=== PATIENT | female | born 1985 | race Caucasian/White ===

== ENCOUNTER → 2017-08-04 | Outpatient (CLI) | payer OTHER ==
[~2017-08-04] MED LIST: ACET325; ACET325 PO; ALBU90I INH; ALBU90OI INH; ALBU90OI61 INH; AMOXICILLIN; AZIT250 PO; BECL40OI INH; BECLNI19AQ IH; BECLOI16.8 IH; BENADRYL25 MG PO; BENTYL10 MG PO; BUDE6HFA; BUDE6HFA INH; CEFU250 PO; CEPH500 PO; CETI5 PO; CODGUAEL PO; COMBIVENT RESPIM4 GM; DIPH50 PO; DOCU100 PO; Esgic Tablet1 EACH PO; FAMO20 PO; FERR325 PO; FLU MED; FLUT.05NI; GEMF600 PO; HYDACE5 PO; HYDR1TAB94 PO; IBUP600 PO; Ipratr-Albuterol3 ML IH; Kristalose20 GM PO; METO25ER PO; METPRE4DP PO; MONT10T; MONT10T PO; MULTI VITAMIN1 EACH PO; MULTIVITAMIN GUMMY PO; MULVITMINE PO; Microgestin1 EAC1 PO; Mucinex600 MG PO; NAPR375; NEOPOLHCSU OT; NITR100 PO; Norco 5-325 Ta1 EACH PO; ONDA8 PO; OTHER; OXYC5 PO; Omeprazole20 M1 PO; Oxycodone HCl5 M1 PO; PRED10 PO; PRED20 PO; PROM25 PO; PYRI100 PO; Prednisone20 MG PO; Pseudoephedrine30 MG PO; QVAR7.3 G1 IH; ROXICODONE5 MG PO; RXNEOPOLHC AD; RXPROM25 PO; SPACE CHAMBER1 EACH PO; SYMBICORT; SYMBICORT IH; Stool Softener100 MG PO; Zofran4 MG PO; Zofran8 MG PO
== END | disposition home or self-care (01) ==
LOC: LAB SHORT 08:01 → PLD 08:01
DX: D36.7 Benign neoplasm of other specified sites (principal)
CPT/HCPCS: 88305

== ENCOUNTER → 2017-08-18 | Outpatient (CLI) | payer OTHER ==
[2017-08-19 09:03] LABS: Candida species (DNA Probe) Positive (NEGATIVE); G. vaginalis (DNA Probe) Negative (NEGATIVE); T. vaginalis (DNA Probe) Negative (NEGATIVE)
== END ==
LOC: LAB 16:45
PROVIDERS: Nurse Practitioner Family
DX: R10.2 Pelvic and perineal pain (principal)
CPT/HCPCS: 87480; 87510; 87660

== ENCOUNTER → 2018-05-13 | Outpatient (CLI) | payer OTHER | LOC: LAB 09:05 → LAB SHORT 09:05 | DX: J45.909 Unspecified asthma, uncomplicated (principal) | CPT/HCPCS: 87070; 87205 ==

== ENCOUNTER 2018-07-18 21:34 | Emergency (ER) | payer OTHER ==
[~2018-07-18] VITALS: Ht 167.6 cm; Wt 89.4 kg
[2018-07-18] MEDS ORDERED: FAMO20 PO (21:55)
[2018-07-18] MEDS ORDERED: FLUTICASONE-SA1 EAC1 IH (21:56)
[2018-07-18] MEDS ORDERED: Singulair10 MG (21:57)
[2018-07-18] MEDS ORDERED: BENADRYL25 MG PO (21:59)
[2018-07-18] MEDS ORDERED: EPIPEN0.3 MG/0.3 IM (22:00)
[2018-07-18] MEDS ORDERED: NICOTINE1 EACH TD (22:01)
[2018-07-18] MEDS ORDERED: ACET325 PO (22:02)
[2018-07-18] MEDS ORDERED: ELDERBERRY (22:03)
[2018-07-18] MEDS ORDERED: CRANBERRY250 MG (22:03)
[2018-07-18] MEDS ORDERED: PROBIOTIC (22:03)
[2018-07-18 22:22] LABS: BASOPHILS ABSOLUTE AUTO 0.06 K/mm3 (0.00-0.23); BASOPHILS PERCENT AUTO 1 % (0-2); EOSINOPHILS ABSOLUTE AUTO 0.43 K/mm3 (0.00-0.68); EOSINOPHILS PERCENT AUTO 4 % (0-6); Hematocrit 40.8 % (33.0-51.0); Hemoglobin 14.2 g/dL (11.5-16.0); IMMATURE GRAN ABSOLUTE AUTO 0.02 K/mm3 (0.00-0.10); IMMATURE GRAN PERCENT AUTO 0 % (0-1); LYMPHOCYTES PERCENT AUTO 41 % (21-46); MONOCYTES ABSOLUTE AUTO 0.49 K/mm3 (0.16-1.47); MONOCYTES PERCENT AUTO 5 % (4-13); Mean Corpuscular HGB 29.8 pg (26.0-34.0); Mean Corpuscular HGB Conc 34.8 g/dL (31.5-36.5); Mean Corpuscular Volume 86 fL (80-100); Mean Platelet Volume 9.4 fL (9.1-12.4); NEUTROPHILS ABSOLUTE AUTO 5.02 K/mm3 (1.96-9.15); NEUTROPHILS PERCENT AUTO 49 % (41-73); Platelet Count 359 K/mm3 (150-400); RDW Coefficient Variation 12.1 % (11.7-14.2); RDW Standard Deviation 38.2 fL (35.1-46.3); Red Blood Cell Count 4.77 M/mm3 (3.80-5.20); White Blood Cell Count 10.22 K/mm3 (4.00-11.30)
[2018-07-18 22:41] LABS: Alanine Aminotransfer (ALT/SGP 17 U/L (12-78); Albumin, Blood 3.7 g/dL (3.4-5.0); Alk Phos 84 U/L (50-136); Anion Gap 12 mmol/L (6-16); Aspartate Aminotrans (AST/SGOT 6 U/L (12-37); Bilirubin, Total 0.3 mg/dL (0.1-1.0); Blood Urea Nitrogen 13 mg/dL (8-24); Bun/Creatinine Ratio 19.2 (12.0-20.0); CO2, Blood 21 mmol/L (21-32); Calcium, Blood 8.9 mg/dL (8.5-10.1); Chloride, Blood 108 mmol/L (98-108); Creatinine, Blood 0.68 mg/dL (0.40-1.00); Globulin, Blood 3.6 g/dL (2.2-4.0); Glomerular Filtration Rate >60 (60-); Glucose, Blood 117 mg/dL (70-99); Potassium, Blood 3.7 mmol/L (3.5-5.5); Sodium, Blood 141 mmol/L (136-145); Total Protein, Blood 7.3 g/dL (6.4-8.2)
[2018-07-18 23:10] LABS: Source, Urine Clean Catch
[2018-07-18 23:16] LABS: Bilirubin, Urine Neg (Neg); Blood, Urine 4+ (Neg); Glucose Qualitative, Urine Neg (Neg); Ketones, Urine Neg (Neg); Leukocyte Esterase, Urine Neg (Neg); Nitrite, Urine Neg (Neg); Protein, Urine 1+ (Neg); Urobilinogen, Urine NORM (Normal)
[2018-07-18 23:27] LABS: Appearance, Urine Clear (Clear); Color, Urine Yellow (P-Yellow)
[2018-07-18 23:37] LABS: Squamous Epithelial Cells Rare /hpf (Few)
[2018-07-18 23:38] LABS: Amorphous Light (0-Heavy); Bacteria Rare /hpf; Mucus Light (0-Heavy); White Blood Cells, Urine 0-2 /hpf (0-5)
[2018-07-19] MEDS ORDERED: Protonix40 MG PO (02:48)
== END 2018-07-19 03:57 | disposition home or self-care (01) ==
LOC: ER 21:34
PROVIDERS: Emergency Medicine
DX: R10.12 Left upper quadrant pain (principal); R11.2 Nausea with vomiting, unspecified; Z91.048 Other nonmedicinal substance allergy status; Z91.040 Latex allergy status; Z91.012 Allergy to eggs; Z91.018 Allergy to other foods; Z88.8 Allergy status to other drugs, medicaments and biological substances; Z79.899 Other long term (current) drug therapy; J45.909 Unspecified asthma, uncomplicated; Z87.891 Personal history of nicotine dependence
CPT/HCPCS: 36415; 71046; 74176; 80053; 81001; 81025; 83690; 85025; 96361; 96374; 96375; 99284-25; J1170; J2405; J2550; J3010; J7030; P9612

== ENCOUNTER → 2018-07-20 | Outpatient (CLI) | payer OTHER ==
[~2018-07-20] MED LIST changes: +CRANBERRY250 MG; +ELDERBERRY; +EPIPEN0.3 MG/0.3 IM; +FLUTICASONE-SA1 EAC1 IH; +NICOTINE1 EACH TD; +PROBIOTIC; +Protonix40 MG PO; +Singulair10 MG
[2018-07-20 12:03] LABS: Adenovirus F 40/41 Not Detected (NOT DETECT); Astrovirus Not Detected (NOT DETECT); Campylobacter Sp Not Detected (NOT DETECT); Cryptosporidium Not Detected (NOT DETECT); Cyclospora Cayetanensis Not Detected (NOT DETECT); E. Coli O157 Not Detected (NOT DETECT); Entamoeba Histolytica Not Detected (NOT DETECT); Enteroaggregative E. coli-EAEC Not Detected (NOT DETECT); Enteropathogenic E. coli-EPEC Not Detected (NOT DETECT); Enterotoxigenic E. coli-ETEC Not Detected (NOT DETECT); Giardia Lamblia Not Detected (NOT DETECT); Norovirus GI/GII Not Detected (NOT DETECT); Plesiomonas Shigelloides Not Detected (NOT DETECT); Rotavirus A Not Detected (NOT DETECT); Salmonella Sp Not Detected (NOT DETECT); Sapovirus Not Detected (NOT DETECT); Shiga Toxin-prod E. coli-STEC Not Detected (NOT DETECT); Shigella/Enteroin E. coli-EIEC Not Detected (NOT DETECT); Vibrio Cholerae Not Detected (NOT DETECT); Vibrio Sp Not Detected (NOT DETECT); Yersinia Enterocolitica Not Detected (NOT DETECT)
== END | disposition home or self-care (01) ==
LOC: LAB SHORT 09:50 → LAB 09:50
PROVIDERS: Emergency Medicine
DX: R19.7 Diarrhea, unspecified (principal)
CPT/HCPCS: 87177; 87209; 87507

== ENCOUNTER → 2018-07-29 | Outpatient (CLI) | payer OTHER | END | disposition home or self-care (01) | LOC: LAB FUT 07-22 13:45 → LAB SHORT 12:41 → LAB 12:41 | PROVIDERS: Internal Medicine Gastroenterology | DX: R19.7 Diarrhea, unspecified (principal) | CPT/HCPCS: 82710 ==

== ENCOUNTER → 2018-09-29 | Outpatient (CLI) | payer OTHER ==
[~2018-09-29] MED LIST changes: +OMEPRAZOLE20 MG PO; -Singulair10 MG; +Singulair10 MG PO
[2018-10-05 23:07] LABS: CHLAMYDIA BY NAA Negative (Negative); GONOCOCCUS BY NAA Negative (Negative); HPV 16 Negative (Negative); HPV 18 Negative (Negative); HPV OTHER HR TYPES Negative (Negative); TRICH VAG BY NAA Negative (Negative)
== END | disposition home or self-care (01) ==
LOC: LAB SHORT 11:43 → LAB 11:43
PROVIDERS: Obstetrics & Gynecology
DX: Z01.419 Encounter for gynecological examination (general) (routine) without abnormal findings (principal); Z11.3 Encounter for screening for infections with a predominantly sexual mode of transmission
CPT/HCPCS: 87491; 87591; 87624; 87661; G0123

== ENCOUNTER → 2019-05-23 | Outpatient (CLI) | payer OTHER ==
[~2019-05-23] MED LIST changes: +ELINEST1 EACH PO
[2019-05-25 10:07] LABS: CHLAMYDIA BY NAA Negative (Negative); GONOCOCCUS BY NAA Negative (Negative); TRICH VAG BY NAA Negative (Negative)
== END | disposition home or self-care (01) ==
LOC: LAB SHORT 10:44 → LAB EV 10:44
PROVIDERS: Physician Assistant Medical
DX: N89.8 Other specified noninflammatory disorders of vagina (principal)
CPT/HCPCS: 87070; 87086; 87205; 87491; 87591; 87661

== ENCOUNTER 2019-06-16 16:32 | Emergency (ER) | payer OTHER ==
[~2019-06-16] VITALS: Ht 165.1 cm; Wt 77.1 kg
[~2019-06-16 16:32] MED LIST changes: -ELINEST1 EACH PO
[2019-06-16 17:19] LABS: BASOPHILS ABSOLUTE AUTO 0.05 K/mm3 (0.00-0.23); BASOPHILS PERCENT AUTO 1 % (0-2); EOSINOPHILS ABSOLUTE AUTO 0.26 K/mm3 (0.00-0.68); EOSINOPHILS PERCENT AUTO 3 % (0-6); Hematocrit 41.4 % (33.0-51.0); Hemoglobin 13.9 g/dL (11.5-16.0); IMMATURE GRAN ABSOLUTE AUTO 0.02 K/mm3 (0.00-0.10); IMMATURE GRAN PERCENT AUTO 0 % (0-1); LYMPHOCYTES ABSOLUTE AUTO 2.42 K/mm3 (0.84-5.20); LYMPHOCYTES PERCENT AUTO 29 % (21-46); MONOCYTES ABSOLUTE AUTO 0.47 K/mm3 (0.16-1.47); MONOCYTES PERCENT AUTO 6 % (4-13); Mean Corpuscular HGB 29.6 pg (26.0-34.0); Mean Corpuscular HGB Conc 33.6 g/dL (31.5-36.5); Mean Corpuscular Volume 88 fL (80-100); Mean Platelet Volume 10.1 fL (9.1-12.4); NEUTROPHILS ABSOLUTE AUTO 5.11 K/mm3 (1.96-9.15); NEUTROPHILS PERCENT AUTO 61 % (41-73); Platelet Count 327 K/mm3 (150-400); RDW Coefficient Variation 13.2 % (11.7-14.2); RDW Standard Deviation 42.5 fL (35.1-46.3); Red Blood Cell Count 4.69 M/mm3 (3.80-5.20); White Blood Cell Count 8.33 K/mm3 (4.00-11.30)
[2019-06-16 17:55] LABS: Alanine Aminotransfer (ALT/SGP 17 U/L (12-78); Alk Phos 73 U/L (50-136); Anion Gap 7 mmol/L (6-16); Aspartate Aminotrans (AST/SGOT 7 U/L (12-37); Bilirubin, Total 0.3 mg/dL (0.1-1.0); Blood Urea Nitrogen 10 mg/dL (8-24); Bun/Creatinine Ratio 12.4 (12.0-20.0); CO2, Blood 24 mmol/L (21-32); Calcium, Blood 9.1 mg/dL (8.5-10.1); Chloride, Blood 107 mmol/L (98-108); Creatinine, Blood 0.81 mg/dL (0.40-1.00); Globulin, Blood 3.9 g/dL (2.2-4.0); Glomerular Filtration Rate >60 (60-); Glucose, Blood 99 mg/dL (70-99); Potassium, Blood 3.9 mmol/L (3.5-5.5); Sodium, Blood 138 mmol/L (136-145); Total Protein, Blood 7.9 g/dL (6.4-8.2); Troponin I <0.015 ng/mL (0.000-0.040)
[2019-06-16] MEDS ORDERED: ELINEST1 EACH PO (18:58)
== END 2019-06-16 19:43 | disposition home or self-care (01) ==
LOC: ER 16:32
PROVIDERS: Physician Assistant
DX: R07.89 Other chest pain (principal); Z88.6 Allergy status to analgesic agent; Z91.040 Latex allergy status; Z91.012 Allergy to eggs; Z91.018 Allergy to other foods; Z88.8 Allergy status to other drugs, medicaments and biological substances; J45.909 Unspecified asthma, uncomplicated; Z87.891 Personal history of nicotine dependence
CPT/HCPCS: 71046; 80053; 84484; 85025; 85379; 93005; 93010; 99284-25

== ENCOUNTER 2022-05-10 10:23 | Day surgery (SDC) | payer OTHER ==
[~2022-05-10] VITALS: Ht 165.1 cm; Wt 93.1 kg
[~2022-05-10 10:23] MED LIST changes: +ELINEST1 EACH PO; +Flovent Diskus50 MCG INH; +IRON PO; +VITAMIN D310 MC4 PO; +Vitamin B Comple1 EA PO; +ZYRTEC10 M2 PO
--- NOTE | 2022-05-10 13:52 | NUR ---
History, Chart, Medications and Allergies reviewed before start of procedure. Patient confirms NPO status and agrees with scheduled surgery. PT BEL[facility].
--- NOTE | 2022-05-10 15:25 | NUR ---
05/10/22 1525 Adilia Ryder PRIOR TO SURGERY START HAMILTON TABLE IN PLACE TO PROTECT PATIENT'S HEAD,FACE, AND INTUBATION TUBE.
--- NOTE | 2022-05-10 17:58 | NUR ---
PT NOW REPORTS HAVING NAUSEA. PT FAMILY PRESENT. THIS RN GAVE REPORT TO Jey WHO IS TAKING OVER CARE AT THIS TIME. PT BEEN GIVEN ICE PACK PER HER REQUEST SHE REPORTS HAVING BURNING PAIN.
--- NOTE | 2022-05-10 18:30 | NUR ---
1800 ASSUMED CARE OF PT. PT VERY PAINFUL AND C/O NAUSEA. C/O PAIN IN URETHRA AND RIGHT SHOULDER PAIN. PT SHAKEY WELL. PHENERGEN 1.[address] CULP CALLED AND TEXTED. [address] CULP W/REPORT. WILL WRITE ORDERS FOR EXTENDED STAY.
--- NOTE | 2022-05-10 18:31 | NUR ---
ASSUMED CARE OF PT FROM YUMIKO DAMIAN. PT PAINFUL AND MOANING. HAS BEEN FEELING NAUSEA BUT ABLE TO TAKE PO PAIN PILL C SOME WATER. UNABLE TO TOLERATE ANY OTHER PO FLUIDS OR FOODS. ABDOMINAL INCISIONS ARE CDI AND VS REMAIN STABLE. SCANT BLEEDING ON KATARINA PAD. CALL OUT TO DR CULP FOR EXTENDED STAY.
--- NOTE | 2022-05-10 19:03 | NUR ---
REPORT GIVEN TO STILL CLEANER TUBE. PT VS REMAIN STABLE. PAIN REMAINS 6/10 DESPITE PAIN MEDICATION GIVEN. PT MOANING AND PAINFUL IN BED BUT IS APPROPRIATE AND PLEASANT. NAUSEA HAS SUBSIDED. ICE TO KATARINA AREA TO HELP WITH BURNING URETHRA. LAP SITES ARE ALL CDI C DERMABOND IN PLACE X4. NO OTHER CONCERNS. SISTER AT BEDSIDE.
--- NOTE | 2022-05-10 19:29 | NUR ---
1915 to room via gurney accompanied by sister. pt crying, reports pain 10/10 to abd. lap sites intact and without draianage.
--- NOTE | 2022-05-11 07:51 | NUR ---
SHIFT SUMMARY POD1 LAP HYSTER c FULGURATION, A/OX4, VSS, TOLERATING PO, PT WAS ADMITTED FOR PAIN MANAGEMENT AFTER SURGERY LAST NIGHT, ABLE TO MANAGE PAIN ORDERED THOUGH PT DID CALL A FEW TIMES AN HOUR EARLY BUT WAS ABLE TO WAIT UNTIL THE NEXT DOSE WAS AVAILABLE WITH IMPROVEMENTS T/O THE SHIFT. ABLE TO GET UP AND WALK TO THE BATHROOM AND VOID WITHOUT DIFFICULTY, REPORTING SOME R SHOULDER PAIN WHICH SHE WAS GIVEN A K PAD FOR. NO OTHER EVENTS THIS SHIFT, CALL LIGHT IN REACH, REPORT GIVEN TO DAY RN.
--- NOTE | 2022-05-11 08:46 | NUR ---
A&OX4, C/O 02/09 INCISIONAL PAIN, MEDICATED PER EMAR, DENIES ANY NAUSEA, LUNGS CLEAR T/O, HRR, ACTIVE BT'S X4, ABD SOFT, REPORTS EMIR REGULAR DIET WELL, ENCROURAGED OOB ONCE PAIN IS CONTROLLED, CONT. TO MONITOR FOR ANY CHANGES.
--- NOTE | 2022-05-11 10:14 | NUR ---
PT ATTEMPTED TO AMBULATE IN ROOM THIS AM BUT UNABLE TO CONT. DUE INCREASED PAIN ON R SIDE AND SHOULDER AREA, PT ASSISTED BACK TO BED AND ALLOWED TO REST, PT NOW RESTING COMFORTABLY STATES SHE FEELS A "LITTLE BETTER" RATES PAIN AT 7/10, ABD BINDER OFFERED NEXT TIME SHE GETS UP, WANTS TO TRY AND TAKE A NAP FOR NOW, CONT. TO MONITOR FOR ANY CHANGES.
[2022-05-11] MEDS ORDERED: PROM25 PO (13:44)
[2022-05-11] MEDS ORDERED: Percocet 5-3251 EACH PO (13:44)
[2022-05-11] MEDS ORDERED: SIME80CH PO (13:45)
--- NOTE | 2022-05-11 15:11 | NUR ---
DC'D HOME, DC INSTRUCTIONS GIVEN, VERBALIZED UNDERSTANDING.
== END 2022-05-11 15:12 | disposition home or self-care (01) ==
LOC: ORSCMMR 10:23 → SURS 19:09 → ORSCMMR 05-11 15:12 → ORD 05-15 11:45 → ORSCMMR 05-15 11:45
PROVIDERS: Obstetrics & Gynecology
PROC: 0U5F4ZZ Destruction of Cul-de-sac, Percutaneous Endoscopic Approach (ICD-10-PCS; principal; 2022-05-10 13:30)
DX: N92.0 Excessive and frequent menstruation with regular cycle (principal); N80.359 Endometriosis of pelvic sidewall, unspecified side, unspecified depth; N94.6 Dysmenorrhea, unspecified; N94.10 Unspecified dyspareunia; R10.2 Pelvic and perineal pain; N73.6 Female pelvic peritoneal adhesions (postinfective); J45.909 Unspecified asthma, uncomplicated; F41.8 Other specified anxiety disorders; F43.10 Post-traumatic stress disorder, unspecified; Z79.899 Other long term (current) drug therapy; E66.9 Obesity, unspecified; Z68.34 Body mass index [BMI] 34.0-34.9, adult
CPT/HCPCS: 88305; A9270; J0690; J1100; J2250; J2405; J2550; J2704; J2795; J3010; J7120

== ENCOUNTER 2022-10-06 15:30 | Emergency (ER) | payer OTHER ==
[~2022-10-06] VITALS: Ht 165.1 cm; Wt 94.3 kg
[~2022-10-06 15:30] MED LIST changes: +Percocet 5-3251 EACH PO; +SIME80CH PO
[2022-10-06] MEDS ORDERED: ALBU90OI INH (16:11)
[2022-10-06 19:29] LABS: BASOPHILS ABSOLUTE AUTO 0.07 K/mm3 (0.00-0.23); BASOPHILS PERCENT AUTO 1 % (0-2); EOSINOPHILS ABSOLUTE AUTO 0.33 K/mm3 (0.00-0.68); EOSINOPHILS PERCENT AUTO 4 % (0-6); Hematocrit 36.5 % (33.0-51.0); Hemoglobin 12.1 g/dL (11.5-16.0); IMMATURE GRAN ABSOLUTE AUTO 0.02 K/mm3 (0.00-0.10); IMMATURE GRAN PERCENT AUTO 0 % (0-1); LYMPHOCYTES PERCENT AUTO 35 % (21-46); MONOCYTES ABSOLUTE AUTO 0.45 K/mm3 (0.16-1.47); MONOCYTES PERCENT AUTO 6 % (4-13); Mean Corpuscular HGB 26.5 pg (26.0-34.0); Mean Corpuscular HGB Conc 33.2 g/dL (31.5-36.5); Mean Corpuscular Volume 80 fL (80-100); Mean Platelet Volume 9.5 fL (9.1-12.4); NEUTROPHILS ABSOLUTE AUTO 4.43 K/mm3 (1.96-9.15); NEUTROPHILS PERCENT AUTO 54 % (41-73); Platelet Count 409 K/mm3 (150-400); RDW Coefficient Variation 12.9 % (11.7-14.2); RDW Standard Deviation 37.1 fL (35.1-46.3); Red Blood Cell Count 4.56 M/mm3 (3.80-5.20)
[2022-10-06 19:44] LABS: Bun/Creatinine Ratio 12.7 (12.0-20.0); Calcium, Blood 8.8 mg/dL (8.5-10.1); Creatinine, Blood 0.63 mg/dL (0.40-1.00); Potassium, Blood 3.6 mmol/L (3.5-5.5)
[2022-10-06 21:34] VITALS: BP 123/75
== END 2022-10-06 21:13 | disposition home or self-care (01) ==
LOC: ER 15:30
PROVIDERS: Student in an Organized Health Care Education/Training Program
DX: K43.9 Ventral hernia without obstruction or gangrene (principal); R19.7 Diarrhea, unspecified; J45.909 Unspecified asthma, uncomplicated; Z86.16 Personal history of COVID-19; Z88.6 Allergy status to analgesic agent; Z91.048 Other nonmedicinal substance allergy status; Z91.040 Latex allergy status; Z91.013 Allergy to seafood; Z91.018 Allergy to other foods; Z88.8 Allergy status to other drugs, medicaments and biological substances; Z79.899 Other long term (current) drug therapy
CPT/HCPCS: 74177; 80048; 85025; Q9967

== ENCOUNTER → 2022-12-04 | Outpatient (CLI) | payer OTHER ==
[2022-12-04 08:21] LABS: Source, Urine Clean Catch
[2022-12-04 12:21] LABS: Appearance, Urine Turbid (Clear); Bilirubin, Urine Neg (Neg); Blood, Urine 3+ (Neg); Color, Urine Yellow (P-Yellow); Glucose Qualitative, Urine Neg (Neg); Ketones, Urine Neg (Neg); Leukocyte Esterase, Urine 3+ (Neg); Nitrite, Urine Neg (Neg); Protein, Urine 1+ (Neg); Urobilinogen, Urine NORM (Normal)
[2022-12-04 13:30] LABS: Amorphous Heavy (0-Heavy); Bacteria Mod /hpf; Squamous Epithelial Cells Mod /hpf (Few)
== END | disposition home or self-care (01) ==
LOC: LAB 08:15 → LAB SHORT 08:15
PROVIDERS: Student in an Organized Health Care Education/Training Program
DX: R31.0 Gross hematuria (principal); R34 Anuria and oliguria
CPT/HCPCS: 81001; 87086

== ENCOUNTER 2023-01-20 06:18 | Day surgery (SDC) | payer OTHER ==
[2023-01-20] VITALS (11 sets, daily range): BP systolic 108–136; BP diastolic 65–89
[~2023-01-20] VITALS: Ht 165.1 cm; Wt 89.9 kg
--- NOTE | 2023-01-20 09:47 | NUR ---
Discharge instructions reviewed with patient. Patient verbalizes understanding. Copy given to patient to take home. EXOFIN GLUE C/D/I TO INCISION, NO OOZING. PT APPLYING ICE TO SITE OVER CLOTHING, DRESSED, USED RESTROOM TO VOID. PAIN TOLERABLE, READY FOR DC HOME, Discharged via wheelchair to private car for ride home.
== END 2023-01-20 09:49 | disposition home or self-care (01) ==
LOC: ORSCMMR 06:18 → ORD 07:30 → ORSCMMR 09:49
PROVIDERS: Surgery
PROC: 0WQF0ZZ Repair Abdominal Wall, Open Approach (ICD-10-PCS; principal; 2023-01-20 07:30)
DX: K43.2 Incisional hernia without obstruction or gangrene (principal); I10 Essential (primary) hypertension; E78.5 Hyperlipidemia, unspecified; J45.909 Unspecified asthma, uncomplicated; Z87.891 Personal history of nicotine dependence; K21.9 Gastro-esophageal reflux disease without esophagitis; F41.9 Anxiety disorder, unspecified; I48.91 Unspecified atrial fibrillation; Z86.16 Personal history of COVID-19; Z79.899 Other long term (current) drug therapy
CPT/HCPCS: A9270; J0690; J1100; J2250; J2405; J2704; J2765; J3010; J7120

== ENCOUNTER 2023-03-04 15:40 | Emergency (ER) | payer OTHER ==
[~2023-03-04] VITALS: Ht 160 cm; Wt 88.0 kg
[2023-03-04 16:49] LABS: Albumin, Blood 4.2 g/dL (3.4-5.0); Bilirubin, Total 0.3 mg/dL (0.1-1.0); Bun/Creatinine Ratio 13.5 (12.0-20.0); Calcium, Blood 9.6 mg/dL (8.5-10.1); Creatinine, Blood 0.74 mg/dL (0.40-1.00); Globulin, Blood 4.2 g/dL (2.2-4.0); Potassium, Blood 3.3 mmol/L (3.5-5.5); Total Protein, Blood 8.4 g/dL (6.4-8.2)
[2023-03-04 17:15] VITALS: BP 123/82
== END 2023-03-04 17:26 | disposition home or self-care (01) ==
LOC: ER 15:40
PROVIDERS: Emergency Medicine
DX: I47.10 Supraventricular tachycardia, unspecified (principal); Z87.891 Personal history of nicotine dependence
CPT/HCPCS: 80053; 93005; 93010; 99285-25

== ENCOUNTER → 2023-05-22 | Outpatient (CLI) | payer OTHER ==
[2023-05-22 11:51] LABS: Source, Urine Voided
[2023-05-22 13:21] LABS: Appearance, Urine Hazy (Clear); Bilirubin, Urine Neg (Neg); Blood, Urine 3+ (Neg); Color, Urine Yellow (P-Yellow); Glucose Qualitative, Urine Neg (Neg); Ketones, Urine Neg (Neg); Leukocyte Esterase, Urine 1+ (Neg); Nitrite, Urine Neg (Neg); Protein, Urine Neg (Neg); Urobilinogen, Urine NORM (Normal); pH, Urine 6.5 (5.0-8.0)
[2023-05-22 13:56] LABS: Bacteria Many /hpf; Mucus Light (0-Heavy); Squamous Epithelial Cells Mod /hpf (Few)
== END ==
LOC: LAB SHORT 10:11 → LAB 10:11
PROVIDERS: Student in an Organized Health Care Education/Training Program
DX: N89.8 Other specified noninflammatory disorders of vagina (principal); R82.90 Unspecified abnormal findings in urine
CPT/HCPCS: 81001; 87086

== ENCOUNTER → 2023-09-08 | Outpatient (CLI) | payer OTHER | END | disposition home or self-care (01) | LOC: LAB 10:00 → LAB SHORT 10:00 | DX: R39.9 Unspecified symptoms and signs involving the genitourinary system (principal) | CPT/HCPCS: 87086 ==

== ENCOUNTER 2023-10-10 05:04 | Day surgery (SDC) | payer OTHER ==
[2023-10-10 07:52] VITALS: BP 113/78
== END 2023-10-10 08:52 | disposition home or self-care (01) ==
LOC: ATC 05:04
DX: D50.9 Iron deficiency anemia, unspecified (principal); J45.909 Unspecified asthma, uncomplicated; Z88.8 Allergy status to other drugs, medicaments and biological substances; Z79.899 Other long term (current) drug therapy; Z87.891 Personal history of nicotine dependence

== ENCOUNTER 2023-12-24 10:54 | Day surgery (SDC) | payer OTHER ==
[2023-12-24] VITALS (20 sets, daily range): BP systolic 115–144; BP diastolic 66–83
[~2023-12-24] VITALS: Ht 167.6 cm; Wt 82.6 kg
[2023-12-24] MEDS ORDERED: CeFAZolin Sodium 2,000 MG in NS 100 ML IV SCH ×3 (11:10→21:00)
[2023-12-24] MEDS ORDERED: Lactated Ringer's 1,000 ML IV SCH ×2 (11:10→17:45)
[2023-12-24] MEDS ORDERED: Bupivacaine 0.5% Inj 10 ML Vial ONE (13:38)
[2023-12-24] MEDS ORDERED: FentaNYL Citrate 50 MCG/ML 2 ML Injection ONE ×2 (14:48→16:32)
[2023-12-24] MEDS ORDERED: propofoL 20 ML IV ONE (14:48)
[2023-12-24] MEDS ORDERED: Rocuronium Bromide 10 MG/ML 5ML Injection IV ONE ×2 (14:48→16:36)
[2023-12-24] MEDS ORDERED: ePHEDrine Sulfate 50 MG/ML 1ML Injection ONE (15:02)
[2023-12-24] MEDS ORDERED: HYDROmorphone HCl/Pf 1MG SYR ONE ×5 (15:26→18:20)
[2023-12-24] MEDS ORDERED: Ondansetron HCl 2 MG / ML 2ML Vial ONE ×2 (15:46→18:28)
[2023-12-24] MEDS ORDERED: Metoclopramide HCl 5MG / ML 2ML Vial ONE ×2 (15:46→18:28)
[2023-12-24] MEDS ORDERED: Dexamethasone Sod Phos 10 MG/ML 1ML VIAL ONE (15:46)
[2023-12-24] MEDS ORDERED: Sugammadex Sodium 200 MG/2ML SDV (100 MG/ML) ONE (17:27)
[2023-12-24] MEDS ORDERED: Ondansetron HCl 2 MG / ML 2ML Vial IV PRN (17:45)
[2023-12-24] MEDS ORDERED: OxyCODONE 5 mg/Acetamin 325 mg TABLET PO PRN (17:45)
[2023-12-24] MEDS ORDERED: Naloxone HCl 0.4MG / ML 1ML Vial IV PRN (17:45)
[2023-12-24] MEDS ORDERED: Simethicone 80 MG Chew PO PRN (17:45)
[2023-12-24] MEDS ORDERED: Promethazine HCl 12.5 MG Supp PR PRN (17:50)
[2023-12-24] MEDS ORDERED: Acetaminophen 325 MG TABLET PO PRN (17:50)
[2023-12-24] MEDS ORDERED: Promethazine HCl 25 MG Tab PO PRN (17:50)
[2023-12-24] MEDS ORDERED: Ondansetron 4 MG TAB PO PRN (17:50)
[2023-12-24] MEDS ORDERED: HYDROmorphone HCl/Pf 1MG SYR IV PRN ×2 (18:20→22:25)
--- NOTE | 2023-12-24 19:26 | NUR ---
PT ARRIVED TO UNIT FROM PACU AT 1848. PAINFUL AND NAUSEATED. MEDICATED PER ORDERS FOR NAUSEA. ORIENTED TO ROOM. REMOVED SMALL PER ORDERS DUE TO PT REQUEST. TOLERATED WELL. CALL LIGHT IN REACH.
[2023-12-24] MEDS ORDERED: NS 250 ML IV PRN (19:40)
[2023-12-24] MEDS ORDERED: Diazepam 5 MG Tab PO PRN (22:25)
[2023-12-25 03:17] VITALS: BP 118/72
[2023-12-25 04:44] LABS: BASOPHILS PERCENT AUTO 0 % (0-2); EOSINOPHILS PERCENT AUTO 0 % (0-6); Hematocrit 34.4 % (33.0-51.0); Hemoglobin 11.8 g/dL (11.5-16.0); IMMATURE GRAN ABSOLUTE AUTO 0.02 K/mm3 (0.00-0.10); IMMATURE GRAN PERCENT AUTO 0 % (0-1); LYMPHOCYTES ABSOLUTE AUTO 0.54 K/mm3 (0.84-5.20); LYMPHOCYTES PERCENT AUTO 8 % (21-46); MONOCYTES PERCENT AUTO 3 % (4-13); Mean Corpuscular HGB Conc 34.3 g/dL (31.5-36.5); Mean Corpuscular Volume 82 fL (80-100); Mean Platelet Volume 9.6 fL (9.1-12.4); NEUTROPHILS PERCENT AUTO 89 % (41-73); Platelet Count 303 K/mm3 (150-400); RDW Standard Deviation 41.8 fL (35.1-46.3); Red Blood Cell Count 4.22 M/mm3 (3.80-5.20); White Blood Cell Count 6.56 K/mm3 (4.00-11.30)
--- NOTE | 2023-12-25 04:59 | NUR ---
SHIFT SUMMARY POD 1 LAP HYSTER PT ABLE TO REST SOME DURING THE NIGHT. PAIN MANAGED PER EMAR. PT TOLERATING PO INTAKE. VOIDING. AMB TO THE BATHROOM WITH SBA. PT HAS X3 LAP SITES CLOSED WITH WOUNG GLUE. VERY MINIMAL VAGINAL BLEEDING. VSS. NO OTHER COCERNS AT THIS TIME, CALL LIGHT WITHIN REACH
[2023-12-25 07:04] VITALS: BP 112/74
[2023-12-25] MEDS ORDERED: Cholecalciferol 400 unit Tab PO SCH (09:00)
[2023-12-25] MEDS ORDERED: Estradiol 1 MG Tab PO SCH (09:00)
[2023-12-25] MEDS ORDERED: Fluticasone 0.05% Nasal Spray SCH (09:00)
[2023-12-25] MEDS ORDERED: Loratadine 10 MG Tab PO SCH (09:00)
[2023-12-25] MEDS ORDERED: Albuterol 2.5 MG/3 ML VIAL INH PRN (09:10)
[2023-12-25] MEDS ORDERED: ESTRADIOL2 MG PO (11:48)
[2023-12-25] MEDS ORDERED: Percocet 5-3251 EACH PO (11:49)
[2023-12-25] MEDS ORDERED: PROM25 PO (11:50)
[2023-12-25] MEDS ORDERED: SIME80CH PO (11:50)
[2023-12-25 12:27] VITALS: BP 118/69
--- NOTE | 2023-12-25 13:36 | NUR ---
discharged PT DC'D AT 1155. REVIEWED DC INSTRUCTIONS W/PT; VERBALIZED UNDERSTANDING. PT LEFT UNIT IN WC W/POSSESSIONS AND DC PAPERWORK IN HAND TO RIDE WAITING OUTSIDE.
== END 2023-12-25 13:10 | disposition home or self-care (01) ==
LOC: ORSCMMR 10:54 → ORD 12:45 → SURS 18:46 → ORSCMMR 12-25 13:10 → ORD 02-05 08:00
PROVIDERS: Obstetrics & Gynecology
PROC: 0UT7FZZ Resection of Bilateral Fallopian Tubes, Via Natural or Artificial Opening With Percutaneous Endoscopic Assistance (ICD-10-PCS; principal; 2023-12-24 12:45)
PROC: 0U5F4ZZ Destruction of Cul-de-sac, Percutaneous Endoscopic Approach (ICD-10-PCS; principal; 2023-12-24 12:45)
PROC: 0UT2FZZ Resection of Bilateral Ovaries, Via Natural or Artificial Opening With Percutaneous Endoscopic Assistance (ICD-10-PCS; principal; 2023-12-24 12:45)
PROC: 0UT9FZZ Resection of Uterus, Via Natural or Artificial Opening With Percutaneous Endoscopic Assistance (ICD-10-PCS; principal; 2023-12-24 12:45)
DX: N80.329 Endometriosis of the posterior cul-de-sac, unspecified depth (principal); N92.1 Excessive and frequent menstruation with irregular cycle; N94.10 Unspecified dyspareunia; N94.6 Dysmenorrhea, unspecified; R10.2 Pelvic and perineal pain; D25.9 Leiomyoma of uterus, unspecified; N80.03 Adenomyosis of the uterus; K66.0 Peritoneal adhesions (postprocedural) (postinfection); J45.909 Unspecified asthma, uncomplicated; Z79.899 Other long term (current) drug therapy
CPT/HCPCS: 36415; 85025; 86850; 86900; 86901; 88307; 94640; 94664; 94760; A9270; J0690; J1100; J1170; J2405; J2704; J2765; J3010; J7050; J7120

== ENCOUNTER 2024-05-03 07:20 | Day surgery (SDC) | payer OTHER ==
[~2024-05-03] VITALS: Ht 167.6 cm; Wt 80.6 kg
[~2024-05-03 07:20] MED LIST changes: +ALBU90OI; +ESTRADIOL2 MG PO
[2024-05-03] MEDS ORDERED: OMEP20ER (08:09)
[2024-05-03] MEDS ORDERED: propofoL 50 ML IV ONE ×2 (08:42→09:17)
[2024-05-03] MEDS ORDERED: Lactated Ringer's 1,000 ML IV ONE ×2 (08:42→09:10)
[2024-05-03 10:00] VITALS: BP 110/87
== END 2024-05-03 10:14 | disposition home or self-care (01) ==
LOC: ORSCSDS 07:20
PROVIDERS: Specialist
PROC: 0DB98ZX Excision of Duodenum, Via Natural or Artificial Opening Endoscopic, Diagnostic (ICD-10-PCS; principal; 2024-05-03 08:45)
PROC: 0DB58ZX Excision of Esophagus, Via Natural or Artificial Opening Endoscopic, Diagnostic (ICD-10-PCS; principal; 2024-05-03 08:45)
PROC: 0DB68ZX Excision of Stomach, Via Natural or Artificial Opening Endoscopic, Diagnostic (ICD-10-PCS; principal; 2024-05-03 08:45)
PROC: 0D758ZZ Dilation of Esophagus, Via Natural or Artificial Opening Endoscopic (ICD-10-PCS; 2024-05-03 08:45)
PROC: 0DBE8ZX Excision of Large Intestine, Via Natural or Artificial Opening Endoscopic, Diagnostic (ICD-10-PCS; 2024-05-03 08:45)
PROC: 0DB58ZX Excision of Esophagus, Via Natural or Artificial Opening Endoscopic, Diagnostic (ICD-10-PCS; 2024-05-03 08:45)
PROC: 0DB68ZX Excision of Stomach, Via Natural or Artificial Opening Endoscopic, Diagnostic (ICD-10-PCS; 2024-05-03 08:45)
PROC: 0DB98ZX Excision of Duodenum, Via Natural or Artificial Opening Endoscopic, Diagnostic (ICD-10-PCS; 2024-05-03 08:45)
DX: R19.7 Diarrhea, unspecified (principal); R13.10 Dysphagia, unspecified; Z87.19 Personal history of other diseases of the digestive system; K22.2 Esophageal obstruction; K44.9 Diaphragmatic hernia without obstruction or gangrene; K64.8 Other hemorrhoids; K64.4 Residual hemorrhoidal skin tags; K57.30 Diverticulosis of large intestine without perforation or abscess without bleeding; Z79.899 Other long term (current) drug therapy
CPT/HCPCS: 88305; 88342; C1726; J2704; J7120

== ENCOUNTER → 2024-05-21 | Outpatient (CLI) | payer OTHER ==
[~2024-05-21] MED LIST changes: +OMEP20ER
[2024-05-22 09:03] LABS: Bacterial Vaginosis PCR Negative (NEGATIVE); Candida Group, PCR NOT DETECTED (NOT DETECT); Candida glabrata-krusei, PCR NOT DETECTED (NOT DETECT)
== END ==
LOC: LAB 13:15 → LAB SHORT 13:15
PROVIDERS: Chiropractor
DX: N89.8 Other specified noninflammatory disorders of vagina (principal)
CPT/HCPCS: 87481; 87661; 87801

== ENCOUNTER 2024-07-05 22:42 | Emergency (ER) | payer OTHER ==
[~2024-07-05] VITALS: Ht 165.1 cm; Wt 80.7 kg
[2024-07-05] MEDS ORDERED: Methocarbamol 500 MG Tab PO ONE (23:15)
[2024-07-06 00:09] LABS: Bun/Creatinine Ratio 13.8 (12.0-20.0); Creatinine, Blood 0.65 mg/dL (0.40-1.00); Potassium, Blood 3.6 mmol/L (3.5-5.5)
[2024-07-06] MEDS ORDERED: Robaxin750 MG PO ×2 (03:06→03:35)
[2024-07-06 03:26] VITALS: BP 111/74
== END 2024-07-06 03:28 | disposition home or self-care (01) ==
LOC: ER 22:42
PROVIDERS: Student in an Organized Health Care Education/Training Program
DX: T71.191A Asphyxiation due to mechanical threat to breathing due to other causes, accidental, initial encounter (principal); R07.0 Pain in throat; J45.909 Unspecified asthma, uncomplicated; Z87.891 Personal history of nicotine dependence; Z88.6 Allergy status to analgesic agent; Z88.8 Allergy status to other drugs, medicaments and biological substances; Z91.040 Latex allergy status; Z91.012 Allergy to eggs; Z91.018 Allergy to other foods; Z91.048 Other nonmedicinal substance allergy status; Z79.899 Other long term (current) drug therapy
CPT/HCPCS: 70491; 80048; 84703; 99284-25; A9270; Q9967

== ENCOUNTER 2024-07-13 07:56 | Day surgery (SDC) | payer OTHER ==
[~2024-07-13 07:56] MED LIST changes: +Cosyntropin 0.25 MG / ML 1ML Vial IV SCH; +Robaxin750 MG PO
[2024-07-13 08:47] VITALS: BP 117/81
[2024-07-13] MEDS ORDERED: THERA-D2000 UNIT PO (11:15)
[2024-07-13] MEDS ORDERED: ACET500 PO (11:15)
[2024-07-13] MEDS ORDERED: FERGON225 MG PO (11:16)
[2024-07-13] MEDS ORDERED: MAGNESIUM OXID500 MG PO (11:16)
== END 2024-07-13 10:28 | disposition home or self-care (01) ==
LOC: ATC 07:56
DX: R42 Dizziness and giddiness (principal); E78.5 Hyperlipidemia, unspecified; J45.909 Unspecified asthma, uncomplicated; Z88.8 Allergy status to other drugs, medicaments and biological substances; Z79.899 Other long term (current) drug therapy
CPT/HCPCS: 80400; 82533; 96374

== ENCOUNTER 2024-08-17 10:11 | Day surgery (SDC) | payer OTHER ==
[~2024-08-17] VITALS: Ht 165.1 cm; Wt 81.6 kg
[~2024-08-17 10:11] MED LIST changes: +ACET500 PO; -Cosyntropin 0.25 MG / ML 1ML Vial IV SCH; +FERGON225 MG PO; +Lactated Ringer's 1,000 ML IV ONE; +MAGNESIUM OXID500 MG PO; +THERA-D2000 UNIT PO; +propofoL 50 ML IV ONE
[2024-08-17] MEDS ORDERED: MAGCIT300 (10:46)
[2024-08-17] MEDS ORDERED: PANT20 (10:46)
[2024-08-17] MEDS ORDERED: Midazolam HCL 1 MG/ML 5MLVIAL ONE (11:43)
[2024-08-17] MEDS ORDERED: Lactated Ringer's 1,000 ML IV ONE (11:51)
[2024-08-17 13:01] VITALS: BP 124/68
--- NOTE | 2024-08-17 13:05 | NUR ---
08/17/24 1305 DANICA OLEARY PT CO OF LEFT EYE PAIN. STATES PAIN 11/09. I WAS INFORMED THAT SHE CO OF PAIN WHILE IN THE ENDO ROOM AND THAT HER EYE WAS FLUSHED BY YUMIKO SAAB. STATES THAT IT FEELS LIKE HER EYE WAS SCRATCHED. DENIES PAIN IN ABD AND ALL OTHER PAIN
== END 2024-08-17 13:03 | disposition home or self-care (01) ==
LOC: ORSCSDS 10:11
PROVIDERS: Internal Medicine Gastroenterology
PROC: 0DB98ZX Excision of Duodenum, Via Natural or Artificial Opening Endoscopic, Diagnostic (ICD-10-PCS; principal; 2024-08-17 11:45)
PROC: 0DB58ZX Excision of Esophagus, Via Natural or Artificial Opening Endoscopic, Diagnostic (ICD-10-PCS; principal; 2024-08-17 11:45)
DX: R13.10 Dysphagia, unspecified (principal); R10.13 Epigastric pain; R19.7 Diarrhea, unspecified; K29.80 Duodenitis without bleeding; K20.90 Esophagitis, unspecified without bleeding; Z90.49 Acquired absence of other specified parts of digestive tract; I10 Essential (primary) hypertension; J45.909 Unspecified asthma, uncomplicated; E78.5 Hyperlipidemia, unspecified; Z87.891 Personal history of nicotine dependence; Z79.899 Other long term (current) drug therapy
CPT/HCPCS: 88305; J2250; J2704; J7120

== ENCOUNTER 2024-12-21 19:07 | Emergency (ER) | payer OTHER ==
[~2024-12-21] VITALS: Ht 167.6 cm; Wt 82.1 kg
[~2024-12-21 19:07] MED LIST changes: -Lactated Ringer's 1,000 ML IV ONE; +MAGCIT300; +PANT20; -propofoL 50 ML IV ONE
[2024-12-21 19:47] LABS: BASOPHILS ABSOLUTE AUTO 0.04 K/mm3 (0.00-0.23); BASOPHILS PERCENT AUTO 1 % (0-2); EOSINOPHILS ABSOLUTE AUTO 0.20 K/mm3 (0.00-0.68); EOSINOPHILS PERCENT AUTO 3 % (0-6); Hematocrit 37.6 % (33.0-51.0); Hemoglobin 13.0 g/dL (11.5-16.0); IMMATURE GRAN ABSOLUTE AUTO 0.02 K/mm3 (0.00-0.10); IMMATURE GRAN PERCENT AUTO 0 % (0-1); LYMPHOCYTES ABSOLUTE AUTO 2.47 K/mm3 (0.84-5.20); LYMPHOCYTES PERCENT AUTO 33 % (21-46); MONOCYTES ABSOLUTE AUTO 0.44 K/mm3 (0.16-1.47); MONOCYTES PERCENT AUTO 6 % (4-13); Mean Corpuscular HGB Conc 34.6 g/dL (31.5-36.5); Mean Corpuscular Volume 89 fL (80-100); NEUTROPHILS ABSOLUTE AUTO 4.23 K/mm3 (1.96-9.15); NEUTROPHILS PERCENT AUTO 57 % (41-73); NRBC ABSOLUTE 0.00 K/mm3 (0.00-0.02); NRBC Auto 0.0 /100 WBC (0.0-0.2); Platelet Count 287 K/mm3 (150-400); RDW Coefficient Variation 12.3 % (11.7-14.2); RDW Standard Deviation 40.1 fL (35.1-46.3)
[2024-12-21 20:12] LABS: Alanine Aminotransfer (ALT/SGP 20.0 U/L (12-78); Albumin, Blood 3.4 g/dL (3.4-5.0); Albumin/Globulin Ratio 0.9 (0.8-1.8); Anion Gap 4.0 mmol/L (3-11); Aspartate Aminotrans (AST/SGOT 17.0 U/L (12-37); Bilirubin, Total 0.2 mg/dL (0.1-1.0); Blood Urea Nitrogen 13.0 mg/dL (8-24); CO2, Blood 27.0 mmol/L (21-32); Calcium, Blood 8.8 mg/dL (8.5-10.1); Chloride, Blood 108.0 mmol/L (98-108); Creatinine, Blood 0.66 mg/dL (0.40-1.00); Globulin, Blood 3.7 g/dL (2.2-4.0); Glucose, Blood 107.0 mg/dL (70-99); Potassium, Blood 3.3 mmol/L (3.5-5.5); Sodium, Blood 136.0 mmol/L (136-145); Total Protein, Blood 7.1 g/dL (6.4-8.2)
[2024-12-21] MEDS ORDERED: ONDA4ODT MM (21:16)
[2024-12-21 21:26] VITALS: BP 115/73
== END 2024-12-21 21:38 | disposition home or self-care (01) ==
LOC: ER 19:07
PROVIDERS: Student in an Organized Health Care Education/Training Program
DX: K43.2 Incisional hernia without obstruction or gangrene (principal); K52.9 Noninfective gastroenteritis and colitis, unspecified; E87.6 Hypokalemia; K90.41 Non-celiac gluten sensitivity; J45.909 Unspecified asthma, uncomplicated; Z79.899 Other long term (current) drug therapy; Z87.891 Personal history of nicotine dependence; Z88.8 Allergy status to other drugs, medicaments and biological substances; Z91.09 Other allergy status, other than to drugs and biological substances; Z88.6 Allergy status to analgesic agent; Z91.011 Allergy to milk products; Z91.018 Allergy to other foods
CPT/HCPCS: 74177; 80053; 83690; 85025; 99284-25; A9270; Q9967

== ENCOUNTER → 2025-04-04 | Outpatient (CLI) | payer OTHER ==
[~2025-04-04] MED LIST changes: +ONDA4ODT MM
== END ==
LOC: LAB SHORT 13:30 → LAB 13:30
DX: N39.0 Urinary tract infection, site not specified (principal)
CPT/HCPCS: 87086

== ENCOUNTER → 2025-05-03 | Outpatient (CLI) | payer OTHER ==
[~2025-05-03] MED LIST changes: -ALBU90OI; +MAG GLYCINATE100 MG PO; -MAGCIT300; +Midodrine HCl2.5 MG PO; +SERT50 PO
[2025-05-04 04:27] LABS: Microalbumin, Urine Quant. 8.11 mg/L (0.000-20.000); Protein, Urine Quantitative 7.8 mg/dL (0.0-11.9)
== END | disposition home or self-care (01) ==
LOC: LAB 08:58 → LAB SHORT 08:58 → LAB FUT 04-26 09:00
PROVIDERS: Internal Medicine Nephrology
DX: N18.1 Chronic kidney disease, stage 1 (principal); D63.1 Anemia in chronic kidney disease; E55.9 Vitamin D deficiency, unspecified; N25.81 Secondary hyperparathyroidism of renal origin; D51.8 Other vitamin B12 deficiency anemias; D52.8 Other folate deficiency anemias; D50.9 Iron deficiency anemia, unspecified; R76.9 Abnormal immunological finding in serum, unspecified; R94.5 Abnormal results of liver function studies; R94.6 Abnormal results of thyroid function studies
CPT/HCPCS: 81050; 82043; 82570; 84156